=== PATIENT | female | born 1960 | race Caucasian/White ===

== ENCOUNTER 2018-06-25 10:27 | Emergency (ER) | payer OTHER ==
[~2018-06-25] VITALS: Ht 172.7 cm; Wt 68.2 kg
[2018-06-25 10:40] VITALS: Ht 172.7 cm; Wt 68.2 kg
[2018-06-25 11:59] LABS: BASOPHILS 0.2 % (0-2); EOSINOPHILS 0.6 % (0-7); HEMATOCRIT 39.6 % (36.0-48.0); HEMOGLOBIN 13.6 g/dL (12-16); IMMATURE GRANULOCYTES 0.3 % (0-5); LYMPHOCYTES 17.8 % (15-50); MCH 32.9 pg (26.0-34.0); MCHC 34.3 g/dL (31.0-37.0); MCV 95.9 fL (80.0-100.0); MEAN PLATELET VOLUME 9.7 fL (7.4-10.4); MONOCYTES 5.1 % (2-11); PLATELET COUNT 366 10x3/uL (130-400); RBC 4.13 10x6/uL (4.00-5.40); RDW 13.1 % (11.5-14.5); WBC 12.8 10x3/uL (4.8-10.8)
[2018-06-25 12:08] LABS: APTT 25.2 SECONDS (22.8-39.4); INR 1.02 (0.85-1.17); PROTIME 12.9 SECONDS (11.6-15.0)
[2018-06-25 12:12] LABS: ALBUMIN 4.3 g/dL (3.4-5.0); ALKALINE PHOSPHATASE 74 U/L (46-116); ALT (SGPT) 29 U/L (10-68); BILIRUBIN - TOTAL 0.83 mg/dL (0.2-1.3); CALC OSMOLALITY 275 mosm/kg (275-300); CALCIUM 9.9 mg/dL (8.5-10.1); CHLORIDE - SERUM 99 mmol/L (98-107); CREATININE - SERUM 0.7 mg/dL (0.6-1.3); GLUCOSE 108 mg/dL (74-106); POTASSIUM - SERUM 3.6 mmol/L (3.5-5.1); PROTEIN - SERUM 8.3 g/dL (6.4-8.2); SODIUM 137 mmol/L (136-145); UREA NITROGEN 15 mg/dL (7-18); eGFR NON AFRICAN AMERICAN > 90 mL/min (90-120)
[2018-06-25 12:24] LABS: CKMB 0.7 U/L (0.0-3.6); CREATINE KINASE 36 UL (21-215); MAGNESIUM - SERUM 1.8 mg/dL (1.8-2.4)
[2018-06-25 12:28] LABS: TROPONIN-I < 0.017 ng/mL (0.000-0.060)
[2018-06-25 13:51] VITALS: BP 154/82
== END 2018-06-25 14:34 | disposition home or self-care (01) ==
LOC: D.ER 10:27
PROVIDERS: Family Medicine
DX: R55 Syncope and collapse (principal); Z86.73 Personal history of transient ischemic attack (TIA), and cerebral infarction without residual deficits